=== PATIENT | female | born 1930 | race Caucasian/White ===

== ENCOUNTER 2018-08-27 06:40 | Inpatient (IN) ==
[2018-08-27] MEDS ORDERED: SOLU-MEDROL IV ONE (07:13)
[2018-08-27] MEDS ORDERED: DUONEB (A & A) INH ONE (07:13)
--- NOTE | 2018-08-27 07:17 | PROVIDER DOCUMENTATION ---
HPI-Respiratory General - General Chief Complaint: Cold Symptoms Stated Complaint: SOB Time Seen by Provider: 08/27/18 07:09 Source: patient, family Allergies/Adverse Reactions: Patient Allergies Allergy/AdvReac Type Severity Reaction Status Date / Time No Known Allergies Allergy Verified 01/27/16 22:06 Home Medications: Home Medication List Medication Instructions Recorded Confirmed Last Taken Type Aspirin 81 mg PO DAILY 11/05/12 08/27/18 08/27/18 07:00 History Esomeprazole [Nexium] 40 mg PO DAILY 11/05/12 08/27/18 08/27/18 07:00 History Indapamide 2.5 mg PO QAM 11/05/12 08/27/18 08/27/18 07:00 History Irbesartan [Avapro] 300 mg PO DAILY 11/05/12 08/27/18 08/27/18 07:00 History Albuterol [Albuterol Neb] 2.5 mg INH Q4H PRN PRN #0 neb 11/07/12 08/27/18 08/26/18 Rx Potassium Chloride E.r. [Klor-Con] 20 meq PO DAILY #0 tablet 11/07/12 08/27/18 08/27/18 07:00 Rx Multivit-Min/FA/Lycopene/Lut 1 tab PO DAILY 07/21/13 08/27/18 08/27/18 07:00 History [Centrum Silver Tablet] Apixaban [Eliquis] 5 mg PO BID 06/08/15 08/27/18 08/27/18 07:00 History Acetaminophen/Diphenhydramine 1 each PO Q6-8H PRN PRN #30 tablet 11/19/15 08/27/18 08/26/18 Rx [Percogesic 325-12.5 mg Tablet] Digoxin [Digox] 125 mcg PO QAM 08/27/18 08/27/18 08/27/18 History - History of Present Illness-Resp Nature of Presenting Problem: Patient reports 1 week of worsening shortness of breath and wheezing. Initially it was worse with exertion, now she is persistently short of breath. She reports fever to 100. States she's been seen twice at an [facility] [place] and given antibiotics and steroids but the symptoms have continued. Denies any pain, nausea or vomiting. Review of Systems - Adult - REVIEW OF SYSTEMS - ADULT Constitutional: reports: see HPI, fever Eyes: reports: no symptoms reported Ears, Nose, Mouth & Throat: reports: no symptoms reported Cardiovascular: reports: no symptoms reported Respiratory: reports: see HPI, dyspnea on exertion, shortness of breath, wheezing. denies: hemoptysis Gastrointestinal: reports: no symptoms reported Integumentary: reports: no symptoms reported Neurological: reports: no symptoms reported Psychiatric: reports: no symptoms reported Endocrine: reports: no symptoms reported Hematologic/Lymphatic: reports: no symptoms reported Allergic/Immunologic: reports: no symptoms reported All Other Systems: Reviewed and Negative Past History - Adult - PAST MEDICAL HISTORY-ADULT Review of Records: reports: Old Records Reviewed Major Childhood Illnesses: reports: denies history Cardiovascular: reports: HTN, MS Respiratory: reports: denies history Gastrointestinal: reports: denies history Obstetrical/Gynecological: reports: denies history Genitourinary: reports: denies history Musculoskeletal: reports: denies history Neurological: reports: denies history Endocrine/Immune: reports: denies history Other Conditions: reports: denies history - PRIOR SURGERIES/PROCEDURES Surgical/Procedure History: reports: hysterectomy - IMMUNIZATION STATUS Childhood Immunizations: See Nurse Assessment - FAMILY HISTORY Family History: reviewed, not pertinent Physical Exam-General - PHYSICAL EXAM-ADULT Initial Vital Signs Reviewed: Yes - CONSTITUTIONAL General Appearance: alert, mild distress - EYES Eyes: PERRL/EOMI, pink conjunctivae - HEAD, EARS, NOSE, MOUTH & THROAT HENMT: normocephalic/atraumatic, moist mucous membranes, normal ENT inspection - NECK Neck: non-tender, full range of motion - RESPIRATORY Respiratory: chest non-tender, respiratory distress (mild), wheezing (bilat). negative: crackles, rales - CARDIOVASCULAR Cardiovascular: normal peripheral pulses, regular rate, rhythm - GASTROINTESTINAL (ABDOMEN) Abdominal Exam: non tender, soft - MUSCULOSKELETAL Back Exam: normal inspection, no CVA tenderness, no vertebral tenderness. negative: decreased range of motion Extremity: normal range of motion, non-tender, normal inspection - SKIN Integumentary: normal color, normal turgor, warm/dry - NEUROLOGIC Neurologic: bond runner II-XII nml as tested, grossly normal - PSYCHIATRIC Psych/Mental Status: normal mood/affect Progress - PLAN OF CARE/RESULTS Result Diagrams: 08/27/18 07:30 08/27/18 07:30 Departure - Departure Date of Disposition Decision: 08/27/18 Time of Disposition Decision: 08:24 DIAGNOSIS: Dyspnea, Bronchospasm Disposition: ADMITTED INPATIENT 09 Certified Medical Emergency: Emergent Condition: Serious - Critical Care Note This patient required my direct & personal management of CC.: No Attestation - Physician/ HENNA Attestation The physician spent face to face time with patient:: Yes Advanced Practice Provider documentation review:: Supervising physician onsite and consulted in the evaluation and care of this patient. The physician did have a face to face encounter with the patient.
[2018-08-27 07:54] LABS: BASO# 0.03 X1000 (0.0-0.2); BASO% 0.2 % (0.0-0.8); EOS# 0.21 X1000 (0.0-0.7); EOS% 1.2 % (0.0-10.0); HEMATOCRIT 40.3 % (37.0-47.0); HEMOGLOBIN 13.5 g/dL (12.0-16.0); IMM GRAN# 0.18 X1000 (0.0-0.04); LYMPH# 0.99 X1000 (1.2-3.4); LYMPH% 5.6 % (20.5-51.1); MCHC 33.5 g/dL (33-37); MCV 92.6 FL (81-99); MONO# 1.54 X1000 (0.11-0.59); MONO% 8.8 % (1.7-9.3); MPV 9.5 FL (7.4-10.4); NEUT# 14.59 X1000 (1.4-6.5); NEUT% 83.2 % (42.2-75.2); PLT 259 X1000 (130-400); RBC 4.35 XMIL (4.2-5.4); RDW 12.7 % (11.5-14.5); WBC 17.54 X1000 (4.8-10.8)
--- NOTE | 2018-08-27 08:08 | Diag Imaging Result Doc PS360 ---
EXAM: CHEST-2 VIEWS 08/27/2018 HISTORY: short of breath TECHNIQUE: PA and lateral chest COMMENT: There is slightly increased interstitial markings bilaterally. The heart size is at the upper limits of normal. There is no evidence of pleural fluid. Compared to 03/31/2015 the lungs are better expanded and the interstitial markings are worse. IMPRESSION: Mild pulmonary edema. Electronically signed by Aayush Perez 08/27/2018 8:06 AM
[2018-08-27 08:11] LABS: ALB/GLOB RATIO 2.2; ALBUMIN 4.2 g/dL (3.5-5.0); CALCIUM 9.2 mg/dL (8.8-10.2); POTASSIUM 3.8 mmol/L (3.5-5.1); TOTAL BILIRUBIN 0.56 mg/dL (0.20-1.00); TOTAL PROTEIN 6.1 g/dL (6.3-8.3)
[2018-08-27] MEDS ORDERED: ZITHROMAX 500 MG/NS 500 MG/250 ML IVPB IV ONE ×2 (08:24→10:00)
[2018-08-27] MEDS ORDERED: ROCEPHIN 2 GM in NS 50 ML IV ONE (08:24)
--- NOTE | 2018-08-27 12:30 | EKG Report ---
Test Performed on : 08/27/2018 08:16:40 AM Test Reason : ED. NO EKG ORDER FOR MUSE Blood Pressure : / mmHG Vent. Rate : 094 BPM Atrial Rate : 094 BPM P-R Int : 000 ms QRS Dur : 092 ms QT Int : 300 ms P-R-T Axes : 000 063 236 degrees QTc Int : [address] & T wave abnormality, consider inferolateral ischemia Abnormal ECG When compared with ECG of 09-JUN-2015 11:13, Significant changes have occurred Unconfirmed Result
[2018-08-27 15:16] LABS: URINE SOURCE CLEAN CATCH
[2018-08-27 15:22] LABS: BILIRUBIN URINE NEGATIVE (NEGATIVE); BLOOD URINE TRACE (NEGATIVE); COLOR YELLOW; GLUCOSE URINE 300 mg/dL (NEGATIVE); KETONE URINE NEGATIVE (NEGATIVE); LEUKOCYTES URINE NEGATIVE (NEGATIVE); NITRITE URINE NEGATIVE (NEGATIVE); PH URINE 6.5; PROTEIN URINE 100 mg/dL (NEGATIVE); TURBIDITY URINE CLEAR (CLEAR); UR EPITHELIAL CELLS <10 /HPF (<10); URINE BACTERIA NEGATIVE /HPF; URINE RBC <10 /HPF (<10); URINE WBC <10 /HPF (<10); UROBILINOGEN URINE NORMAL (NORMAL)
[2018-08-27] MEDS ORDERED: ROCEPHIN 1 GM in NS 50 ML IV SCH (17:00)
[2018-08-27] MEDS: APRESOLINE IV PRN (19:44)
[2018-08-27] MEDS: ELIQUIS PO SCH (20:43)
[2018-08-27] MEDS: LEVAQUIN 500 MG/D5W 500 MG/100 ML IVPB IV SCH (20:43)
[2018-08-27] MEDS ORDERED: TYLENOL PM PO SCH (21:15)
[2018-08-27] MEDS: AVAPRO PO SCH (22:31)
[2018-08-27] MEDS ORDERED: CATAPRES PO ONE (23:24)
--- NOTE | 2018-08-27 23:24 | HISTORY AND PHYSICAL ---
CHIEF COMPLAINT: Shortness of breath, cough, wheezing, swelling of feet. HISTORY OF PRESENT ILLNESS: She is an 87-year-old white female who was brought in by family with above symptoms. The patient was treated at walk-in clinic with URI symptoms and bronchitis. Chest x-ray had mild cardiomegaly. The patient is markedly wheezing, 2+ edema. Lactate level was high. ER physician called me to be hospitalized for IV antibiotics, IV Lasix. ProBNP was pending. The patient was seen in the emergency room. Waiting to be admitted. PAST MEDICAL HISTORY: Acute asthma, paroxysmal atrial fibrillation, bilateral calcaneal spur, CAD, noncritical lesions, glucose intolerance, hyperlipidemia, hypertension, restless legs syndrome, spondylolisthesis L5-S1. PAST SURGICAL HISTORY: Tonsillectomy, appendectomy, cholecystectomy, partial hysterectomy, bilateral cataract surgery. MEDICATIONS: Aspirin 81 mg daily, albuterol nebulizers q.6, Avapro 300 mg daily, Lanoxin 125 mcg daily, Eliquis 2.5 p.o. b.i.d., indapamide 2.5 mg daily, potassium 10 mEq daily, Mirapex 0.5 daily, Nexium 40 daily, Rhinocort as needed. ALLERGIES: Not known. SOCIAL HISTORY: . Two children. Lives in [place]. No smoking. No alcohol. FAMILY HISTORY: Father of [place] at 87. Mother of intestinal cancer at 86. HEALTH MAINTENANCE: Flu vaccine January 2018. Pneumococcal vaccine in 2019. Mammography April 2017. DEXA scan May 2018. Colonoscopy 2015. REVIEW OF SYSTEMS: HEENT: No headache. No vision problem. No earache. Postnasal drainage, sniffles. Neck: No goiter. No lymphadenopathy. No bruit. Cardiopulmonary: No shortness of breath, cough, wheezing. No chest pain, swelling of feet. Gastrointestinal: No nausea, vomiting, abdominal pain. Genitourinary: No history of hesitancy, frequency, dysuria. Musculoskeletal: No joint pain. Neurologic: No focal symptoms or weakness. PHYSICAL EXAMINATION: VITAL SIGNS: Temperature is 98 degrees, blood pressure is high, pulse 91, 96% on room air. HEENT: Atraumatic, normocephalic. Pupils equal, react to light. TMs are normal. Nose and throat congested. NECK: JVD slightly elevated. LUNGS: The patient is in mild respiratory distress. Bilateral wheezing. HEART: Sounds are regular. ABDOMEN: Belly is soft, nontender. Good bowel sounds. EXTREMITIES: 1+ pedal edema. NEUROLOGIC: No obvious neurological deficits. INVESTIGATIONS: CBC: White cell count 17, hematocrit 40, platelets 259,000. Sodium 134, potassium 3.8, chloride 95, BUN 24, creatinine 1.0 glucose 126. AST, ALT were slightly high. Troponin was negative. Plasma lactate 2.7. Urinalysis: 3+ glucose. Chest x- ray: Mild CHF, cardiomegaly. ASSESSMENT AND PLAN: An 87-year-old white female with known history of asthmatic bronchitis, came in not able to improve with outpatient treatment. 1. Oxygen, Levaquin 500 IV once daily, ceftriaxone, and IV steroids. Bronchodilators. 2. Check the proBNP. 3. Uncontrolled hypertension. We will use hydralazine as needed. Continue home medications which include Avapro and indapamide. 4. Right lower lobe 7 mm nodule, stable. 5. Acid reflux disease on Nexium. 6. Paroxysmal atrial fibrillation on beta blockers, Eliquis, and Lanoxin. 7. Chronic back pain due to spondylolisthesis. Stable under Dr. Sales. 8. Pedal edema. Discontinue calcium channel blockers. 9. 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 Under the care of Dr. Strickland. 10. Leg pains. Previous workup. CONNER was 0.98. SPEP was negative. 11. Glucose intolerance. A1c 6.2. We will check the A1c and continue on sliding scale with insulin coverage. 12. Restless legs syndrome. Tylenol P.M. and Mirapex. 13. Reconcile home medications. 14. Initiate vaccination protocol. 15. Will follow up. cc: MD BROOKE Mcclellan
[2018-08-28] MEDS: CATAPRES PO PRN ×2 (03:52→18:15)
[2018-08-28] MEDS: APRESOLINE IV PRN (05:21)
[2018-08-28] MEDS: DUONEB (A & A) INH PRN ×2 (06:03→07:36)
[2018-08-28 07:54] LABS: BASO# 0.03 X1000 (0.0-0.2); BASO% 0.2 % (0.0-0.8); EOS# 0.01 X1000 (0.0-0.7); EOS% 0.1 % (0.0-10.0); HEMATOCRIT 42.4 % (37.0-47.0); HEMOGLOBIN 14.3 g/dL (12.0-16.0); IMM GRAN# 0.19 X1000 (0.0-0.04); IMM GRAN% 1.2 % (0.0-0.5); LYMPH# 0.99 X1000 (1.2-3.4); LYMPH% 6.4 % (20.5-51.1); MCH 30.9 PG (27-31); MCHC 33.7 g/dL (33-37); MCV 91.6 FL (81-99); MONO# 1.47 X1000 (0.11-0.59); MONO% 9.4 % (1.7-9.3); MPV 9.5 FL (7.4-10.4); NEUT# 12.88 X1000 (1.4-6.5); NEUT% 82.7 % (42.2-75.2); PLT 234 X1000 (130-400); RBC 4.63 XMIL (4.2-5.4); RDW 12.6 % (11.5-14.5); WBC 15.57 X1000 (4.8-10.8)
--- NOTE | 2018-08-28 08:10 | EKG Report ---
Test Performed on : 08/28/2018 08:03:44 AM Test Reason : chest pain Blood Pressure : / mmHG Vent. Rate : 128 BPM Atrial Rate : 104 BPM P-R Int : 000 ms QRS Dur : 088 ms QT Int : 318 ms P-R-T Axes : 000 055 -85 degrees QTc Int : 464 ms Atrial fibrillation. with rapid ventricular response. Marked ST abnormality, possible inferior subendocardial injury Abnormal ECG When compared with ECG of 27-AUG-2018 08:16, (Unconfirmed) T wave inversion no longer evident in Inferior leads Nonspecific T wave abnormality has replaced inverted T waves in Lateral leads Confirmed by Krupa FRYE, Kofi Weber ([id number]) on 08/29/2018 11:59:41 AM
[2018-08-28] MEDS ORDERED: LANOXIN IV ONE (08:12)
[2018-08-28] MEDS ORDERED: CARDIZEM IV ONE (08:14)
[2018-08-28 08:28] LABS: CALCIUM 9.5 mg/dL (8.8-10.2); POTASSIUM 3.7 mmol/L (3.5-5.1)
--- NOTE | 2018-08-28 08:52 | Diag Imaging Result Doc PS360 ---
EXAM: CHEST-2 VIEWS - 08/28/2018 HISTORY: SOB TECHNIQUE: Chest two views COMPARISON: 08/27/2018 FINDINGS: Heart size appears upper normal stable. There is decreased prominence of lower lung interstitial markings compared to prior. There is no consolidation, pleural effusion, or pneumothorax identified. Degenerative changes noted at bilateral shoulders, most prominent on the right. IMPRESSION: Decreased prominence of lower lung interstitial markings compared to prior. No other acute changes. Electronically signed by Severino Aguayo 08/28/2018 8:50 AM
[2018-08-28] MEDS ORDERED: AVAPRO PO SCH (09:00)
[2018-08-28] MEDS: ROCEPHIN 1 GM in NS 50 ML IV SCH (09:06)
[2018-08-28] MEDS: SOLU-MEDROL IV SCH (09:07)
[2018-08-28] MEDS: LOZOL PO SCH (09:07)
[2018-08-28] MEDS: LASIX IV SCH (09:07)
[2018-08-28] MEDS: AVAPRO PO SCH (09:08)
[2018-08-28] MEDS: CENTRUM SILVER PO SCH (09:08)
[2018-08-28] MEDS: ELIQUIS PO SCH ×2 (09:08→20:28)
[2018-08-28] MEDS: ASPIRIN PO SCH (09:08)
[2018-08-28] MEDS: LANOXIN PO SCH ×2 (09:08→12:41)
[2018-08-28] MEDS: KLOR-CON PO SCH (09:08)
[2018-08-28] MEDS ORDERED: CARDIZEM 125 MG in NS 100 ML IV SCH (11:00)
[2018-08-28] MEDS ORDERED: CHLORASEPTIC SPRAY MT PRN (14:25)
[2018-08-28] MEDS: LEVAQUIN 500 MG/D5W 500 MG/100 ML IVPB IV SCH ×2 (16:35→17:28)
[2018-08-28] MEDS: MIRAPEX PO SCH (20:28)
--- NOTE | 2018-08-28 23:36 | ECHO REPORT ---
ORDER DATE: 08/28/2018 MEASUREMENTS: Septal thickness 1.4, left ventricular internal diameter in diastole 3.8, left ventricular post wall thickness 1.4, left ventricular internal diameter in systole 2.2, aortic root 3.0, left atrium 2.8. SUMMARY: 1. Adequate quality study. 2. Aortic valve is trileaflet and opens normally on 2-dimensional images. Peak gradient across the valve is 20 mmHg, and velocities across the aortic valve are increased in the setting of hyperdynamic left ventricular function. There is no significant aortic stenosis. Mitral, tricuspid, and pulmonic valves are without evidence of structural abnormality with mild mitral regurgitation, mild tricuspid regurgitation, and mild pulmonic insufficiency. The estimated systolic PA pressure by Doppler is 60 mmHg, suggesting moderate pulmonary hypertension. The aortic root is normal size. 3. Normal left ventricular chamber size with mild to moderate concentric left hypertrophy is demonstrated. The left ventricle appears hyperdynamic with estimated left ejection fraction at least 75%. No regional wall abnormalities evident. Left atrium, right atrium, right ventricle are normal in size with normal right ventricular systolic function. 4. No pericardial effusion. 5. Inferior vena cava appears mildly dilated, suggesting mild elevation in central venous pressure. CONCLUSIONS: 1. Mild mitral regurgitation. 2. Mild tricuspid regurgitation with estimated systolic PA pressure 60 mmHg. 3. Mild to moderate concentric left hypertrophy with hyperdynamic left ventricular systolic function. Estimated left ejection fraction at least 75%. 4. Mild dilatation of inferior vena cava suggests mild elevation in central venous pressure. cc: MD Blake Samson MD
--- NOTE | 2018-08-29 00:01 | PROGRESS NOTE ---
DATE: 08/28/2018 SUBJECTIVE: Level 3 documentation. The patient was seen twice, intermediate manager. I was vendor relationship manager last night since admission. Transferred to the stepdown unit due to decompensation on the floor. The patient had a rough night. Has restless legs syndrome. Tylenol PM was given. The patient started having rapid atrial fibrillation, wheezing and swelling of feet. Blood pressure was running high. No chest pain. REVIEW OF SYSTEMS: Shortness of breath, cough, wheezing and tachycardia. DIAGNOSTIC DATA: EKG was obtained, with rapid atrial fibrillation noted. OBJECTIVE: On exam, temperature is 98 degrees, pulse is 122. Vital signs are stable. The patient is in mild respiratory distress. HEENT exam within normal limits. JVD is elevated. Chest: Wheezing. Heart sounds are erratic, distant. Belly is soft, nontender. Pedal edema 1+ in both legs. No neurological deficits. LABORATORY DATA: White cell count 15, hematocrit 42, platelets 234,000. Sodium 129, potassium 3.7, BUN 24, creatinine 1.0, glucose 170. CK was normal. ProBNP 2900. ASSESSMENT AND PLAN: 1. An 87-year-old white female basically decompensating with atrial fibrillation, with diastolic heart failure. Plan as follows: Move to the stepdown unit. Lanoxin 500 mcg 1 dose, intravenous Cardizem drip, Lasix 40 mg. Follow up on proBNP and chest x-ray. 2. Asthmatic bronchitis, on intravenous steroids, ceftriaxone and Levaquin. Most likely cardiac asthma. 3. Chronic atrial fibrillation now. Eliquis 5 mg b.i.d. We will check echocardiography. 4. Restless legs syndrome, on Mirapex. 5. Repeat the labs in the morning. 6. Glucose intolerance, worsening with steroids. We will monitor sliding scale with insulin coverage. Discussed the plan of care with the patient and again in the evening. Will follow up. cc: Blake Mina MD
[2018-08-29] MEDS: DUONEB (A & A) INH PRN ×2 (03:32→09:41)
[2018-08-29 05:57] LABS: BASO% 0.1 % (0.0-0.8); HEMATOCRIT 38.6 % (37.0-47.0); HEMOGLOBIN 13.1 g/dL (12.0-16.0); IMM GRAN% 0.7 % (0.0-0.5); LYMPH# 0.54 X1000 (1.2-3.4); LYMPH% 5.4 % (20.5-51.1); MCHC 33.9 g/dL (33-37); MCV 91.3 FL (81-99); MONO# 1.33 X1000 (0.11-0.59); MONO% 13.2 % (1.7-9.3); MPV 9.5 FL (7.4-10.4); NEUT% 80.6 % (42.2-75.2); PLT 223 X1000 (130-400); RBC 4.23 XMIL (4.2-5.4); RDW 12.4 % (11.5-14.5); WBC 10.05 X1000 (4.8-10.8)
[2018-08-29 05:58] LABS: BASO# 0.01 X1000 (0.0-0.2); IMM GRAN# 0.07 X1000 (0.0-0.04)
[2018-08-29] MEDS: HUMULIN R SUBQ SCH ×4 (06:07→21:08)
[2018-08-29 06:46] LABS: CALCIUM 9.3 mg/dL (8.8-10.2); CREATININE 1.1 mg/dL (0.5-0.9)
[2018-08-29] MEDS: CARDIZEM PO SCH ×3 (08:33→21:06)
[2018-08-29] MEDS: CENTRUM SILVER PO SCH (09:18)
[2018-08-29] MEDS: ROCEPHIN 1 GM in NS 50 ML IV SCH (09:18)
[2018-08-29] MEDS: ASPIRIN PO SCH (09:18)
[2018-08-29] MEDS: LANOXIN PO SCH (09:18)
[2018-08-29] MEDS: LASIX IV SCH (09:18)
[2018-08-29] MEDS: ELIQUIS PO SCH ×2 (09:18→21:06)
[2018-08-29] MEDS: SOLU-MEDROL IV SCH (09:19)
[2018-08-29] MEDS: KLOR-CON PO SCH (09:19)
[2018-08-29] MEDS: LOZOL PO SCH (09:38)
[2018-08-29] MEDS: AVAPRO PO SCH (09:38)
[2018-08-29] MEDS: LEVAQUIN 500 MG/D5W 500 MG/100 ML IVPB IV SCH (16:59)
--- NOTE | 2018-08-29 19:11 | PROGRESS NOTE ---
DATE: 08/29/2018 SUBJECTIVE: The patient is much better after the rate control of atrial fibrillation and blood pressure is also controlled and decreased edema and wheezing and she was not taking oxygen at home. EXAMINATION: Temperature is 96 degrees, pulse is 66, blood pressure 160/66. HEENT exam within normal limits.Chest: Bilateral air entry. Distant heart sounds. Belly is soft, nontender. Decreased edema. DIAGNOSTIC STUDIES: CBC: White cell count 10, hematocrit 38, platelets 223. Sodium 127, potassium 4, BUN 31, creatinine 1.1, and glucose slightly elevated at 329. ProBNP was high. Chest x-ray was improving. ASSESSMENT AND PLAN: 1. Shortness of breath due to asthmatic bronchitis, possible diastolic heart failure with atrial fibrillation. 2. Glucose intolerance. 3. Isolated hypertension, poorly controlled. Echocardiography showed mild mitral regurgitation, mild pulmonary hypertension, moderate concentric LV hypertrophy with EF 75%. Plan is discontinue IV Cardizem drip, change to Cardizem p.o. Decrease IV steroids. Continue IV antibiotics. The patient is already on Eliquis and basically rate control and anticoagulation and control blood pressure. Physical therapy. Continue to watch the blood pressure over the weekend and I am going to decrease IV steroids 20 mg daily. LEVEL OF DOCUMENTATION: 25 minutes. cc: Blake Mina MD MTDD
[2018-08-29] MEDS: MIRAPEX PO SCH (21:06)
[2018-08-29] MEDS: CATAPRES PO PRN (21:06)
[2018-08-30] MEDS: CARDIZEM PO SCH ×4 (01:28→20:00)
[2018-08-30] MEDS: HUMULIN R SUBQ SCH ×4 (06:24→20:00)
[2018-08-30] MEDS: AVAPRO PO SCH (08:36)
[2018-08-30] MEDS: KLOR-CON PO SCH (08:36)
[2018-08-30] MEDS: LANOXIN PO SCH (08:36)
[2018-08-30] MEDS: CENTRUM SILVER PO SCH (08:36)
[2018-08-30] MEDS: ASPIRIN PO SCH (08:36)
[2018-08-30] MEDS: CATAPRES PO PRN ×2 (08:36→20:06)
[2018-08-30] MEDS: LOZOL PO SCH (08:36)
[2018-08-30] MEDS: ELIQUIS PO SCH ×2 (08:36→20:00)
[2018-08-30] MEDS: SOLU-MEDROL IV SCH (08:37)
[2018-08-30] MEDS: LASIX IV SCH (08:37)
[2018-08-30] MEDS: ROCEPHIN 1 GM in NS 50 ML IV SCH (08:37)
[2018-08-30] MEDS: DUONEB (A & A) INH PRN ×3 (11:10→22:51)
--- NOTE | 2018-08-30 14:50 | Diag Imaging Result Doc PS360 ---
EXAM: CHEST-2 VIEWS INDICATION: crackles TECHNIQUE: 3 views COMPARISON: 08/28/2018 FINDINGS: The lungs are grossly clear. There is no discrete pleural fluid collection or pneumothorax. The cardiomediastinal silhouette and central vasculature are grossly unremarkable. IMPRESSION: No evidence of acute pathology by plain radiograph. Electronically signed by Al Mckeon 08/30/2018 2:48 PM
--- NOTE | 2018-08-30 14:57 | PROGRESS NOTE ---
DATE: 08/30/2018 SUBJECTIVE: Patient overall feeling better. Complains of some burning pain intermittently at right trapezius, upper subscapular area. She says she has had a cough productive of some dark phlegm. OBJECTIVE: Vital signs: Afebrile, pulse 41, respirations 17, blood pressure 143/50, O2 saturation on 2 to 3 L 96 to 98 percent. Cardiovascular: Irregularly irregular, controlled heart rate. Lungs: Prominent crackles right lung field. Cannot rule out a rare crackle in the left lung base. Good air movement. Abdomen: Nontender, nondistended. Skin: No rash identified at the trapezius or subscapular area. Extremities: No calf tenderness, cords or edema. Neurologic: Cranial nerves are intact. Nonfocal. LABORATORY DATA: Blood sugars in the 200s primarily. ASSESSMENT: 1. Bronchitis versus pneumonia. 2. Diastolic congestive heart failure, acute exacerbation on top of chronic condition. 3. Chronic atrial fibrillation with recent rapid ventricular response, now improved, back on oral medications of Cardizem and digoxin. 4. Diabetes mellitus. 5. Hypertension. 6. Right subscapular pain. PLAN: Continue IV Rocephin and Levaquin she is on, along with low-dose steroids. She is being transitioned over to oral diuretics of Lozol. She remains on Cardizem 60 mg q.6 hours along with digoxin 0.125 mg daily. Continue Eliquis and aspirin. We will repeat chest x-ray in the morning. We will check proBNP, digoxin level, CBC and BMP. She overall is improving. cc: MD Blake Zamorano MD
[2018-08-30] MEDS: LEVAQUIN 500 MG/D5W 500 MG/100 ML IVPB IV SCH ×2 (16:47→17:44)
[2018-08-30] MEDS: MIRAPEX PO SCH (20:00)
[2018-08-31] MEDS: CARDIZEM PO SCH ×4 (02:20→20:46)
[2018-08-31] MEDS: DUONEB (A & A) INH PRN (03:53)
[2018-08-31 05:59] LABS: BASO# 0.06 X1000 (0.0-0.2); BASO% 0.5 % (0.0-0.8); HEMOGLOBIN 13.6 g/dL (12.0-16.0); IMM GRAN# 0.08 X1000 (0.0-0.04); IMM GRAN% 0.7 % (0.0-0.5); LYMPH# 0.94 X1000 (1.2-3.4); LYMPH% 7.7 % (20.5-51.1); MCH 30.6 PG (27-31); MCV 89.9 FL (81-99); MONO# 1.16 X1000 (0.11-0.59); MONO% 9.5 % (1.7-9.3); MPV 9.7 FL (7.4-10.4); NEUT% 81.6 % (42.2-75.2); PLT 234 X1000 (130-400); RBC 4.45 XMIL (4.2-5.4); RDW 12.1 % (11.5-14.5); WBC 12.24 X1000 (4.8-10.8)
[2018-08-31 06:19] LABS: CALCIUM 9.8 mg/dL (8.8-10.2); CREATININE 1.3 mg/dL (0.5-0.9); POTASSIUM 4.3 mmol/L (3.5-5.1)
[2018-08-31 06:44] LABS: LYMPHS 6 % (21-51); MONO 6 % (1-9); SEGS 87 % (42-75)
[2018-08-31] MEDS: HUMULIN R SUBQ SCH ×4 (06:46→21:03)
[2018-08-31] MEDS ORDERED: BLISTEX MEDICATED BERRY LIP BALM TOP PRN (06:54)
[2018-08-31] MEDS: KLOR-CON PO SCH (08:52)
[2018-08-31] MEDS: ASPIRIN PO SCH (08:52)
[2018-08-31] MEDS: CENTRUM SILVER PO SCH (08:52)
[2018-08-31] MEDS: LANOXIN PO SCH (08:52)
[2018-08-31] MEDS: ELIQUIS PO SCH ×2 (08:53→20:46)
[2018-08-31] MEDS: ROCEPHIN 1 GM in NS 50 ML IV SCH (08:56)
[2018-08-31] MEDS: SOLU-MEDROL IV SCH ×3 (08:56→21:04)
[2018-08-31] MEDS: AVAPRO PO SCH (09:20)
[2018-08-31] MEDS ORDERED: SAMSCA PO ONE (09:45)
[2018-08-31] MEDS ORDERED: ATIVAN IV PRN (09:49)
[2018-08-31] MEDS ORDERED: RESTORIL PO PRN (09:50)
[2018-08-31] MEDS ORDERED: TYLENOL PO PRN (09:50)
--- NOTE | 2018-08-31 10:15 | PROGRESS NOTE ---
DATE: 08/31/2018 SUBJECTIVE: The patient says she feels anxious and has not rested at all in the 2 or 3 days. She complains of some mild headache. She is having some cough productive of some whitish phlegm. OBJECTIVE: Vital Signs: Afebrile, pulse 79, respirations 16, blood pressure 166/54, O2 saturation on 2 L is 100%. Cardiovascular: Irregularly irregular. Lungs: Wheezes bilaterally, mild. Crackles have improved, but maybe minimal at the bases. Abdomen: Soft. Active bowel sounds. Nontender. Extremities: No calf tenderness, cords, or edema. Neurologic: Nonfocal. Cranial nerves are intact. IMAGING AND LABORATORY DATA: Labs show sodium 120, potassium 4.3, chloride 80, CO2 of 26, BUN 48, creatinine 1.3. Blood sugar in the low 200s. White count 12.2, hemoglobin 13.6, platelets 234,000. Chest x-ray reveals grossly clear lungs. Central vasculature grossly unremarkable. ProBNP is 1323. ASSESSMENT: 1. Bronchitis. 2. Diastolic congestive heart failure, acute exacerbation on chronic. 3. Chronic atrial fibrillation with recent rapid ventricular response, now improved on digoxin and Cardizem. 4. Diabetes mellitus. 5. Hypertension. 6. Pronounced hyponatremia, thought related to diuretic usage. PLAN: Will hold the Lozol and furosemide today, and resume oral furosemide tomorrow. Continue IV Rocephin and Levaquin. Make her DuoNebs scheduled every 6 hours, and will continue the Cardizem and digoxin, Eliquis and aspirin. Will give her one dose of Samsca, and will follow her sodium and electrolytes closely tomorrow. Will increase her steroids back from 20 mg IV daily to 20 mg every 12 hours. Follow strict intake and output. cc: MD Blake Zamorano MD
[2018-08-31] MEDS: DUONEB (A & A) INH SCH ×2 (15:12→21:55)
[2018-08-31] MEDS: LEVAQUIN 500 MG/D5W 500 MG/100 ML IVPB IV SCH (17:48)
[2018-08-31] MEDS: MIRAPEX PO SCH (20:46)
[2018-09-01] MEDS: CARDIZEM PO SCH ×3 (02:44→15:04)
[2018-09-01] MEDS: DUONEB (A & A) INH SCH ×3 (03:35→15:08)
[2018-09-01] MEDS: CATAPRES PO PRN (05:19)
[2018-09-01] MEDS: HUMULIN R SUBQ SCH ×3 (06:51→17:12)
[2018-09-01 07:31] LABS: BASO# 0.01 X1000 (0.0-0.2); BASO% 0.1 % (0.0-0.8); HEMATOCRIT 41.4 % (37.0-47.0); HEMOGLOBIN 13.9 g/dL (12.0-16.0); IMM GRAN# 0.06 X1000 (0.0-0.04); IMM GRAN% 0.6 % (0.0-0.5); LYMPH# 0.41 X1000 (1.2-3.4); LYMPH% 3.9 % (20.5-51.1); MCH 30.5 PG (27-31); MCHC 33.6 g/dL (33-37); MONO# 0.56 X1000 (0.11-0.59); MONO% 5.4 % (1.7-9.3); MPV 9.2 FL (7.4-10.4); NEUT# 9.35 X1000 (1.4-6.5); PLT 266 X1000 (130-400); RBC 4.55 XMIL (4.2-5.4); RDW 12.3 % (11.5-14.5); WBC 10.39 X1000 (4.8-10.8)
[2018-09-01 07:37] VITALS: BP 175/63
[2018-09-01 07:46] LABS: CALCIUM 10.6 mg/dL (8.8-10.2); CREATININE 1.4 mg/dL (0.5-0.9); POTASSIUM 4.8 mmol/L (3.5-5.1)
[2018-09-01 08:37] LABS: BANDS 4 % (0-1); LYMPHS 4 % (21-51); MONO 10 % (1-9); SEGS 78 % (42-75)
[2018-09-01] MEDS: KLOR-CON PO SCH (08:42)
[2018-09-01] MEDS: LANOXIN PO SCH (08:42)
[2018-09-01] MEDS: ASPIRIN PO SCH (08:43)
[2018-09-01] MEDS: ELIQUIS PO SCH (08:43)
[2018-09-01] MEDS: AVAPRO PO SCH (08:43)
[2018-09-01] MEDS: ROCEPHIN 1 GM in NS 50 ML IV SCH (08:44)
[2018-09-01] MEDS: CENTRUM SILVER PO SCH (08:44)
[2018-09-01] MEDS: SOLU-MEDROL IV SCH ×2 (08:55→09:02)
[2018-09-01] MEDS ORDERED: LASIX PO SCH (09:00)
--- NOTE | 2018-09-02 15:34 | DISCHARGE SUMMARY ---
ADMISSION DATE: 08/27/2018 DISCHARGE DATE: 09/01/2018 DISCHARGING DIAGNOSIS: Acute decompensated diastolic heart failure with cardiac asthma with underlying chronic atrial fibrillation. SECONDARY DIAGNOSIS: 1. Hyponatremia due to over diuresis. 2. History of asthma. 3. Glucose intolerance exacerbating by steroids. 4. Bilateral calcaneal spur. 5. CAD with noncritical lesions. 6. Hyperlipidemia. 7. Hypertension. 8. Restless legs syndrome. 9. Spondylolisthesis L5-S1. BRIEF HISTORY: Please see the H and P that was done on 08/27/2018. In brief, she is an 87-year- old white female who was admitted to the hospital with cough, shortness of breath, wheezing, PND, orthopnea, swelling of feet. She has also has allergy component for which she was given IV antibiotics and steroids. However, telemetry showed rapid atrial fibrillation. Subsequently transferred to [facility]. The patient was given IV Cardizem drip. Blood pressure was running high. Echocardiography showed normal LV systolic function and EF is 70%. At this time, patient is relegated to medical management with rate control and anticoagulation. The patient feels symptoms are much improved. However, she felt very weak due to hyponatremia. Dr. Alicea stopped the Lasix and Lozol. Subsequently, sodium levels came back 132. Patient did qualify for home oxygen. She is requiring 1 L of oxygen. LABS: CBC: White cell count 10, hematocrit 41, platelets 266,000. Sodium 132, potassium 4.8, chloride 89, BUN 40, creatinine 1.4, glucose 281. ProBNP was 2900. Digoxin 1.4 and chest x-ray was no evidence of acute pathology. Significant improvement. The findings were discussed with the family at bedside. DISCHARGE INSTRUCTIONS: 1. Hold the Lozol for the time being. 2. Nexium 40 daily. 3. Avapro 300 daily. 4. Aspirin 81 mg daily. 5. Potassium 20 mEq daily. 6. Albuterol nebulizers q. 6 as needed. 7. Multivitamin 1 tablet daily. 8. Eliquis 2.5 p.o. b.i.d. 9. Digoxin 125 mcg in the morning. 10. Cardizem 120 p.o. b.i.d. 11. Control the diabetes with diet. 12. Basically atrial fibrillation rate control and anticoagulation. 13. Oxygen 1 L. 14. Mirapex 0.5 at bedtime. 15. Follow up in my office next week. cc: Blake Mina MD
== END 2018-09-01 18:00 | disposition home or self-care (01) | DRG 292 ==
LOC: ED 06:40 → 3N 06:41 → 3S 08-28 12:57 → 3N 08-31 16:06
PROVIDERS: ADMIT Internal Medicine; ATTEND Internal Medicine
CPT/HCPCS: 71020; 71046; 80048; 80053; 80162; 81001; 82550; 82948; 83605; 83880; 84484; 85025; 87040; 87275; 87276; 87804; 93005; 93010; 93306; 94640; 94760; 94761; 94799; 96365; 96375; 97162; 97530; 99285; A9270; J0360; J0456; J0696; J1160; J1940; J1956; J2920; J2930; XXXXX

== ENCOUNTER 2018-09-07 13:29 | Inpatient (IN) ==
[2018-09-07] MEDS ORDERED: SAMSCA PO ONE (15:31)
[2018-09-07] MEDS ORDERED: NACL 3% 500 ML IV SCH (15:45)
[2018-09-07] MEDS: APRESOLINE PO SCH (16:51)
[2018-09-07] MEDS: LASIX IV ONE ×2 (16:52→17:20)
[2018-09-07 17:17] LABS: URINE SOURCE CLEAN CATCH
[2018-09-07] MEDS ORDERED: LASIX IV ONE (17:20)
[2018-09-07 17:23] LABS: BILIRUBIN URINE NEGATIVE (NEGATIVE); BLOOD URINE NEGATIVE (NEGATIVE); COLOR STRAW; GLUCOSE URINE NEGATIVE (NEGATIVE); KETONE URINE NEGATIVE (NEGATIVE); LEUKOCYTES URINE NEGATIVE (NEGATIVE); NITRITE URINE NEGATIVE (NEGATIVE); PH URINE 6.5; PROTEIN URINE TRACE mg/dL (NEGATIVE); SP GRAVITY URINE 1.003; TURBIDITY URINE CLEAR (CLEAR); UROBILINOGEN URINE NORMAL (NORMAL)
[2018-09-07 17:24] LABS: UR EPITHELIAL CELLS <10 /HPF (<10); URINE BACTERIA NEGATIVE /HPF; URINE RBC <10 /HPF (<10); URINE WBC <10 /HPF (<10)
--- NOTE | 2018-09-07 17:43 | HISTORY AND PHYSICAL ---
CHIEF COMPLAINT: Swelling of feet, high blood pressure, cough, and wheezing, and productive cough. HISTORY OF PRESENT ILLNESS: She is an 87-year-old white female recently discharged from the hospital for cardiac asthma due to diastolic heart failure with hypertension, heart disease, and chronic atrial fibrillation, started on Cardizem. Diuretic was stopped due to hyponatremia. The patient's family brought her in with the above symptoms. She has a low sodium level and 2+ edema. It looks like cardiac asthma due to worsening of hypertension. Cardizem is causing the swelling of the feet. Basically readmitted to the hospital for hyponatremia, mental confusion, and shortness of breath. PAST MEDICAL HISTORY: 1. History of allergic asthma. 2. PAF. 3. Bilateral calcaneal spur. 4. CAD, noncritical lesions. 5. Glucose intolerance. 6. Hyperlipidemia. 7. Hypertension. 8. Restless legs syndrome. 9. Spondylolisthesis L5-S1. PAST SURGICAL HISTORY: Tonsillectomy, appendectomy, cholecystectomy, partial hysterectomy, bilateral cataract surgery. ALLERGIES: Statin drugs. MEDICATIONS: Nexium 40 mg daily, Avapro 300 daily, aspirin 81 mg daily, potassium 20 mEq daily, albuterol Atrovent nebulizers q.6, multivitamin 1 tablet daily, Lanoxin 125 mcg in the morning, Eliquis 2.5 p.o. b.i.d., Cardizem 120 p.o. b.i.d., Samsca 15 mg daily, Tessalon Perles, oxygen as needed. SOCIAL HISTORY: , 2 children. Lives in [place]. No smoking. No alcohol. FAMILY HISTORY: Father of ID at 87. Mom of intestinal cancer at 86. REVIEW OF SYSTEMS: HEENT: No headache. No vision problem. No earache. No sore throat. Neck: No goiter. No lymphadenopathy. No bruit. Cardiopulmonary: Shortness of breath, cough, wheezing, elevated blood pressure. Breasts: No lumps in the breasts. GI: No nausea, vomiting, abdominal pain. : No history of hesitancy, frequency, dysuria. Musculoskeletal: Swelling of feet. No joint pain. Neurologic: No focal symptoms, dizziness/vertigo. No seizures. PHYSICAL EXAMINATION: VITAL SIGNS: Temperature is 98 degrees, pulse 60, blood pressure 192/52, 5 feet tall, 164 pounds. HEENT: Within normal limits. NECK: Supple. JVD is not elevated. CHEST: No wheezing. HEART: Sounds irregular. ABDOMEN: Belly is soft, nontender. Good bowel sounds. EXTREMITIES: There is 1+ pedal edema noted. LABS: CBC: White cell count 20, hematocrit 39, platelets 236,000. PT 12, INR 1.1. ABG, pH is 7.39, pCO2 of 32, PO2 81, on room air. Sodium 126, potassium 4.9, BUN 26, creatinine 1.1, glucose 138. Chest x-ray stable. ASSESSMENT: 1. This is an 87-year-old white female admitted to the hospital with altered mental status due to hyponatremia despite holding the diuretics. 2. Edema is probably from the Cardizem. 3. Isolated systolic hypertension. 4. Chronic atrial fibrillation and glucose intolerance. PLAN OF CARE: 1. Oxygen as needed. No signs of infection noted. Elevated white cell count due to steroids. We will start on Samsca 1 dose. 2. Hypertonic saline. 3. Discontinue Cardizem. Changing to metoprolol for control of the heart rate. 4. Hydralazine added. 5. Reconcile home medicines as follows. Eliquis for chronic atrial fibrillation, aspirin, Lanoxin, hypertension, on Avapro, metoprolol and hydralazine. 6. We will give IV Lasix 1 dose and repeat the labs in the morning and will follow up. cc: Blake Mina MD MTDD
[2018-09-07] MEDS: TESSALON PO PRN (19:58)
[2018-09-07] MEDS ORDERED: CARDIZEM PO SCH (21:00)
[2018-09-07] MEDS: LOPRESSOR PO SCH (22:58)
[2018-09-07] MEDS: ELIQUIS PO SCH (22:58)
[2018-09-08] MEDS: TESSALON PO PRN ×3 (04:05→21:58)
[2018-09-08 08:10] LABS: CALCIUM 9.2 mg/dL (8.8-10.2); CREATININE 1.1 mg/dL (0.5-0.9); POTASSIUM 4.1 mmol/L (3.5-5.1)
[2018-09-08] MEDS: KLOR-CON PO SCH (10:20)
[2018-09-08] MEDS: ELIQUIS PO SCH ×2 (10:20→20:53)
[2018-09-08] MEDS: NEXIUM PO SCH (10:20)
[2018-09-08] MEDS: CENTRUM SILVER PO SCH (10:20)
[2018-09-08] MEDS: APRESOLINE PO SCH ×3 (10:21→18:56)
[2018-09-08] MEDS: AVAPRO PO SCH (10:22)
[2018-09-08] MEDS: ASPIRIN PO SCH (10:23)
[2018-09-08] MEDS: LOPRESSOR PO SCH ×2 (10:32→20:53)
[2018-09-08] MEDS: LANOXIN PO SCH ×2 (10:32→12:19)
[2018-09-09] MEDS: TESSALON PO PRN ×3 (07:04→23:28)
[2018-09-09 07:06] LABS: CALCIUM 9.5 mg/dL (8.8-10.2); CREATININE 1.2 mg/dL (0.5-0.9); POTASSIUM 4.2 mmol/L (3.5-5.1)
[2018-09-09] MEDS: ALBUTEROL NEB INH PRN ×4 (08:44→23:30)
--- NOTE | 2018-09-09 09:47 | Diag Imaging Result Doc PS360 ---
CHEST-2 VIEWS - 09/09/2018 INDICATION: SOB COMPARISON: 09/07/2018 FINDINGS: There has been improvement in the ill-defined bibasilar interstitial infiltrates. No infiltrates time. Heart size remains borderline enlarged. Pulmonary vascularity is top normal. No pneumothorax or substantial pleural effusion. IMPRESSION: Borderline cardiomegaly. No acute disease. Electronically signed by Matt Rodriguez 09/09/2018 9:44 AM
[2018-09-09] MEDS: NEXIUM PO SCH (11:10)
[2018-09-09] MEDS: AVAPRO PO SCH (11:10)
[2018-09-09] MEDS: ASPIRIN PO SCH (11:10)
[2018-09-09] MEDS: APRESOLINE PO SCH ×3 (11:10→18:36)
[2018-09-09] MEDS: LANOXIN PO SCH (11:11)
[2018-09-09] MEDS: CENTRUM SILVER PO SCH (11:11)
[2018-09-09] MEDS: LOPRESSOR PO SCH ×2 (11:12→23:28)
[2018-09-09] MEDS: ELIQUIS PO SCH ×2 (11:12→23:28)
[2018-09-09] MEDS: KLOR-CON PO SCH (11:12)
[2018-09-10] MEDS: ALBUTEROL NEB INH PRN ×4 (03:50→17:39)
[2018-09-10 06:45] LABS: CALCIUM 9.2 mg/dL (8.8-10.2); POTASSIUM 4.3 mmol/L (3.5-5.1)
[2018-09-10] MEDS: ASPIRIN PO SCH (10:23)
[2018-09-10] MEDS: LEVAQUIN PO SCH (10:23)
[2018-09-10] MEDS: LOPRESSOR PO SCH ×2 (10:23→23:41)
[2018-09-10] MEDS: TESSALON PO PRN ×2 (10:23→18:44)
[2018-09-10] MEDS: APRESOLINE PO SCH ×3 (10:23→18:07)
[2018-09-10] MEDS: KLOR-CON PO SCH (10:23)
[2018-09-10] MEDS: NEXIUM PO SCH (10:24)
[2018-09-10] MEDS: ELIQUIS PO SCH ×2 (10:24→23:41)
[2018-09-10] MEDS: AVAPRO PO SCH (10:24)
[2018-09-10] MEDS: CENTRUM SILVER PO SCH (10:24)
[2018-09-10] MEDS: LANOXIN PO SCH (10:25)
[2018-09-10] MEDS: LOZOL PO SCH (10:35)
--- NOTE | 2018-09-10 12:48 | PROGRESS NOTE ---
DATE: 09/09/2018 SUBJECTIVE: The patient complains of cough and congestion, productive cough and waiting for sputum cultures. OBJECTIVE: Temperature 99.1 degrees, pulse 74, and blood pressure 150/57.HEENT: Within normal limits. Chest: Clear. Heart: Distant heart sounds. Abdomen: Belly is soft and nontender. Good bowel sounds. No peripheral edema. INVESTIGATIONS: CBC: SMA 7 sodium 140, potassium 4.2, chloride 103, BUN 26, and creatinine 1.2. ASSESSMENT AND PLAN: Chronic atrial fibrillation, diastolic heart failure, uncontrolled hypertension. Superimposed bronchitis. Follow up on sputum cultures. Repeat chest x-ray. Consider using Levaquin. Control the blood pressure. Continue present treatment and hyponatremia is improving. LEVEL OF DOCUMENTATION: 25 minutes. cc: Blake Mina MD
--- NOTE | 2018-09-10 16:45 | PROGRESS NOTE ---
DATE: 09/08/2018 SUBJECTIVE: The patient is much better and complains of some chest pain and wheezing. OBJECTIVE: Vitals: Temperature is 98 degrees, pulse 63, blood pressure is 150/50. Intake and Output: She has significant negative balance at 1.0 L. HEENT: Exam within normal limits. Chest: Decreased wheezing. Heart sounds are irregularly irregular. Belly is soft, nontender. Decreased edema. DIAGNOSTIC STUDIES: SMA-7: Sodium 137, potassium 4.1, chloride 99, BUN 23, creatinine 1.1, glucose 137. ProBNP 1700. ASSESSMENT AND PLAN: 1. Hyponatremia due to volume overload. 2. Hypertension. 3. Atrial fibrillation. 4. Cardiac asthma. Plan of care Hypertonic 3% saline drip. Control the blood pressure with Avapro, hydralazine, and metoprolol. 5. Atrial fibrillation on Eliquis and repeat the SMA-7 in the morning. If he is stable, we will discharge and follow up. LEVEL OF DOCUMENTATION: 25 minutes. cc: Blake Mina MD MTDD
--- NOTE | 2018-09-10 22:09 | PROGRESS NOTE ---
DATE: 09/10/2018 SUBJECTIVE: The patient is still having some productive cough and basically clinical exam is getting better. EXAMINATION: Vital signs: Temperature is 98 degrees, pulse 76, blood pressure is stable. Weight is 149 pounds. HEENT: Within normal limits. Neck: Supple. Chest: Clear. Heart: Sounds are regular. Extremities: No peripheral edema. LABORATORY DATA: Sputum cultures normal charito. ASSESSMENT AND PLAN: Chronic atrial fibrillation with diastolic heart failure, hypertension, heart disease, asthmatic bronchitis. PLAN: Continue present treatment. Restart on low-dose of Lozol and fluid restrictions and daily weights. Continue to monitor sodium levels. Consider Samsca. The patient is not able to afford the medication and we will check the labs in the morning and will follow up. cc: Blake Mina MD
[2018-09-11 07:20] LABS: POTASSIUM 4.5 mmol/L (3.5-5.1)
[2018-09-11 07:21] LABS: CALCIUM 9.9 mg/dL (8.8-10.2); CREATININE 1.2 mg/dL (0.5-0.9)
[2018-09-11 07:42] VITALS: BP 190/55
[2018-09-11] MEDS: ASPIRIN PO SCH (08:42)
[2018-09-11] MEDS: LANOXIN PO SCH (08:42)
[2018-09-11] MEDS: LOPRESSOR PO SCH (08:42)
[2018-09-11] MEDS: KLOR-CON PO SCH (08:43)
[2018-09-11] MEDS: LEVAQUIN PO SCH (08:43)
[2018-09-11] MEDS: NEXIUM PO SCH (08:43)
[2018-09-11] MEDS: LOZOL PO SCH (08:43)
[2018-09-11] MEDS: CENTRUM SILVER PO SCH (08:44)
[2018-09-11] MEDS: ELIQUIS PO SCH (08:44)
[2018-09-11] MEDS: AVAPRO PO SCH (08:44)
[2018-09-11] MEDS: APRESOLINE PO SCH (08:44)
--- NOTE | 2018-09-14 07:39 | DISCHARGE SUMMARY ---
ADMISSION DATE: 09/07/2018 DISCHARGE DATE: 09/11/2018 DISCHARGE DIAGNOSES: 1. Altered mental status due to metabolic encephalopathy. 2. 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 3. Isolated systolic hypertension. 4. Chronic atrial fibrillation. 5. Glucose intolerance. 6. Bronchopneumonia with Enterobacter cloaca. BRIEF HISTORY: Please see the H and P that was done on 09/07/2018. In brief, she is an 87-year- old white female, recently discharged from the hospital for cardiac asthma due to diastolic heart failure, with hypertension, heart disease, and chronic atrial fibrillation, unable to tolerate the Cardizem due to swelling of feet, associated with 2+ edema and also sodium 126. She also has a productive cough. The patient was given Levaquin p.o. The patient was given IV Lasix and Samsca. She has excellent diuresis. On followup, her symptoms are much improved. Discontinue the Cardizem due to edema. I am changing to protocol. For control of the heart rate for atrial fibrillation, metoprolol was added, and also hydralazine was added to control the systolic hypertension. The patient was not able to afford Samsca. At the time of discharge, the patient is stable. The labs at the time of discharge are as follows. Sodium 138, potassium 4.5, chloride 100, BUN 23, creatinine 1.2, glucose 145. Urinalysis is clear. Sputum cultures grew Enterobacter cloaca. At the time of discharge, the patient's weight is 149 pounds. DISCHARGE MEDICATIONS: Nexium 40 mg daily, Avapro 300 mg p.o. daily, aspirin 81 mg daily, potassium 20 mEq daily, albuterol nebulizers as needed, Centrum Silver 1 tablet daily, Lanoxin 125 mcg in the morning, Eliquis 2.5 p.o. b.i.d., discontinue Cardizem due to edema, Samsca as directed if she can afford, hydralazine 50 p.o. t.i.d., Lozol 125 daily, Levaquin 500 daily for 7 days. FOLLOWUP: Follow up in my office next week. cc: Blake Mina MD
== END 2018-09-11 10:22 | disposition home or self-care (01) | DRG 643 ==
LOC: DIRADM → OBSVTOIN 13:29 → 4N 13:37
PROVIDERS: ADMIT Internal Medicine; ATTEND Internal Medicine
CPT/HCPCS: 70450; 71020; 71046; 80048; 80053; 80162; 81001; 83605; 83880; 85025; 87040; 87070; 87077; 87186; 87205; 94640; 94761; 99285; A9270; J1940